=== PATIENT | male | born 1980 | race Caucasian/White ===

== ENCOUNTER 2018-01-12 02:58 | Emergency (ER) | payer OTHER ==
[~2018-01-12] VITALS: Ht 180.3 cm; Wt 78.0 kg
--- NOTE | 2018-01-12 03:52 | NUR ---
Patient refused splint placement to his R hand, patient states " I want to go see an orthopedic doctor now, I do not want a splint placed at this time'. ER MD is aware and spoke with the patient to provide information regarding this patients fracture/need for splinting. Patient still refused splint application and states " I will go see the orthopedic in [place] now, I do not want the splint".
--- NOTE | 2018-01-12 03:59 | NUR ---
Patient discharged to home in stable conditon. Written and verbal after care instructions given. Patient verbalizes understanding of instructions. Ambulated from ER with stable gait. All belongings with patient.
[2018-01-12 04:01] VITALS: BP 127/84
== END 2018-01-12 04:05 | disposition home or self-care (01) ==
LOC: ER 03:07
DX: S62.394A Other fracture of fourth metacarpal bone, right hand, initial encounter for closed fracture (principal); W18.30XA Fall on same level, unspecified, initial encounter; Y93.89 Activity, other specified; Y92.89 Other specified places as the place of occurrence of the external cause; Y99.8 Other external cause status
CPT/HCPCS: 73130; A4663